=== PATIENT | female | born 1995 | race African-American/Black ===

== ENCOUNTER 2023-11-26 08:14 | Day surgery (SDC) | payer OTHER ==
[2023-11-25 10:49] VITALS: BMI 30.7
[2023-11-26 09:36] LABS: HEMOGLOBIN 13.2 G/dL (10.7-15.3); MCH 28.1 pg (25.7-33.7); MCHC 32.1 g/dl (32.0-36.0); MEAN CELL VOLUME 87.6 fl (80-96); MEAN PLT VOLUME 8.1 fl (7.5-11.1); PLATELET COUNT 408.1 10^3/uL (134-434); RBC 4.68 10^6/uL (3.60-5.2); RDW 13.2 % (11.6-15.6); WHITE BLOOD COUNT 5.7 10^3/uL (4.0-10.8)
[2023-11-26 09:38] LABS: ALBUMIN 4.3 g/dl (3.4-5.0); ALK PHOS 102 U/L (45-117); ANION GAP 12 mmol/L (4-13); BILIRUBIN,TOTAL 0.7 mg/dl (0.2-1); CALCIUM 9.1 mg/dl (8.5-10.1); CHLORIDE 106 mmol/L (98-107); CO2 24 mmol/L (21-32); CREATININE 0.7 mg/dl (0.6-1.3); GLUCOSE,RANDOM 90 mg/dl (74-106); POTASSIUM 3.6 mmol/L (3.5-5.1); SGOT/AST 15 U/L (15-37); SGPT/ALT 15 U/L (7-52); SODIUM 142 mmol/L (136-145); TOT PROT 7.1 g/dl (6.4-8.2)
[2023-11-26] MEDS ORDERED: KETAMINE HCL 100 MG/ML - 5ML VIAL ONE (11:39)
[2023-11-26] MEDS ORDERED: SUCCINYLCHOLINE CHLORIDE 200 MG/10 ML SYRINGE ONE (11:56)
[2023-11-26] MEDS ORDERED: MIDAZOLAM HCL 2 MG/2 ML SINGLE DOSE VIAL ONE (12:02)
[2023-11-26 12:24] VITALS: RESP 16
[2023-11-26 14:00] VITALS: PULSE 64; TEMP 98
[2023-11-26 14:52] VITALS: BP 98/68
== END 2023-11-26 14:50 | disposition home or self-care (01) ==
LOC: FECT 08:14
PROVIDERS: ATTEND Student in an Organized Health Care Education/Training Program
PROC: GZB4ZZZ Other Electroconvulsive Therapy (ICD-10-PCS; principal; 2023-11-26 11:58)
DX: F32.A Depression, unspecified (principal)
CPT/HCPCS: 36415; 80053; 81025; 85027; 90870; 93005; 94760

== ENCOUNTER 2023-11-28 09:01 | Day surgery (SDC) | payer OTHER ==
[2023-11-25 14:16] VITALS: BMI 30.7
[2023-11-28] MEDS ORDERED: PROPOFOL 20 ML ONE ×2 (10:16→11:43)
[2023-11-28] MEDS ORDERED: SUCCINYLCHOLINE CHLORIDE 200 MG/10 ML SYRINGE ONE ×2 (10:17→11:43)
[2023-11-28] MEDS ORDERED: MIDAZOLAM HCL 2 MG/2 ML SINGLE DOSE VIAL ONE (10:28)
[2023-11-28 11:35] VITALS: RESP 16; TEMP 97.3
[2023-11-28 13:29] VITALS: PULSE 88
[2023-11-28 13:30] VITALS: BP 122/75
== END 2023-11-28 14:30 | disposition home or self-care (01) ==
LOC: FECT 09:01
PROVIDERS: ATTEND Student in an Organized Health Care Education/Training Program
PROC: GZB4ZZZ Other Electroconvulsive Therapy (ICD-10-PCS; principal; 2023-11-28 10:24)
DX: F32.A Depression, unspecified (principal)
CPT/HCPCS: 90870; 94760

== ENCOUNTER 2023-12-03 09:09 | Day surgery (SDC) | payer OTHER ==
[2023-11-25 14:44] VITALS: BMI 30.7
[2023-12-03] MEDS ORDERED: KETAMINE HCL 100 MG/ML - 5ML VIAL ONE (13:58)
[2023-12-03 15:03] VITALS: RESP 19
[2023-12-03 15:19] VITALS: TEMP 97.7
[2023-12-03 15:27] VITALS: BP 112/64; PULSE 84
== END 2023-12-03 15:20 | disposition home or self-care (01) ==
LOC: FECT 09:09
PROVIDERS: ATTEND Student in an Organized Health Care Education/Training Program
PROC: GZB4ZZZ Other Electroconvulsive Therapy (ICD-10-PCS; principal; 2023-12-03 14:19)
DX: F32.A Depression, unspecified (principal)
CPT/HCPCS: 81025; 90870; 94760

== ENCOUNTER 2023-12-05 09:57 | Day surgery (SDC) | payer OTHER ==
[2023-12-03 15:46] VITALS: BMI 30.7
[2023-12-05 10:17] VITALS: RESP 16
[2023-12-05] MEDS ORDERED: KETAMINE HCL 100 MG/ML - 5ML VIAL ONE (12:43)
[2023-12-05 14:06] VITALS: BP 117/53; TEMP 98.1
[2023-12-05 14:08] VITALS: PULSE 74
== END 2023-12-05 14:22 | disposition home or self-care (01) ==
LOC: FECT 09:57
PROVIDERS: ATTEND Student in an Organized Health Care Education/Training Program
PROC: GZB4ZZZ Other Electroconvulsive Therapy (ICD-10-PCS; principal; 2023-12-05 13:03)
DX: F32.A Depression, unspecified (principal)
CPT/HCPCS: 90870; 94760

== ENCOUNTER 2023-12-06 08:05 | Day surgery (SDC) | payer OTHER ==
[2023-12-05 15:43] VITALS: BMI 30.7
[2023-12-06] MEDS ORDERED: KETAMINE HCL 100 MG/ML - 5ML VIAL ONE (08:57)
[2023-12-06 11:10] VITALS: TEMP 97.7
[2023-12-06 12:35] VITALS: BP 116/65; PULSE 82; RESP 16
== END 2023-12-06 11:30 | disposition home or self-care (01) ==
LOC: FECT 08:05
PROVIDERS: ATTEND Student in an Organized Health Care Education/Training Program
PROC: GZB4ZZZ Other Electroconvulsive Therapy (ICD-10-PCS; principal; 2023-12-06 09:15)
DX: F32.A Depression, unspecified (principal)
CPT/HCPCS: 90870; 94760

== ENCOUNTER 2023-12-10 08:15 | Day surgery (SDC) | payer OTHER ==
[2023-12-09 07:01] VITALS: BMI 30.7
[2023-12-10] MEDS ORDERED: KETAMINE HCL 100 MG/ML - 5ML VIAL ONE (09:52)
[2023-12-10 11:07] VITALS: RESP 18; TEMP 97.8
[2023-12-10 11:23] VITALS: BP 110/64; PULSE 64
== END 2023-12-10 11:25 | disposition home or self-care (01) ==
LOC: FECT 08:15
PROVIDERS: ATTEND Student in an Organized Health Care Education/Training Program
PROC: GZB4ZZZ Other Electroconvulsive Therapy (ICD-10-PCS; principal; 2023-12-10 10:09)
DX: F32.A Depression, unspecified (principal)
CPT/HCPCS: 81025; 90870; 94760

== ENCOUNTER 2023-12-12 09:35 | Day surgery (SDC) | payer OTHER ==
[2023-12-11 09:22] VITALS: BMI 30.7
[~2023-12-12 09:35] MED LIST: ACETAMINOPHEN 500 MG TABLET (FP) PO PRN; LACTATED RINGERS SOLUTION 1,000 ML IV SCH; PROMETHAZINE HCL 25 MG/1 ML VIAL IVPB PRN
[2023-12-12] MEDS ORDERED: KETAMINE HCL 100 MG/ML - 5ML VIAL ONE (10:36)
[2023-12-12 11:30] VITALS: RESP 18; TEMP 97.7
[2023-12-12 11:52] VITALS: BP 121/71; PULSE 81
== END 2023-12-12 11:55 | disposition home or self-care (01) ==
LOC: FECT 09:35
PROVIDERS: ATTEND Student in an Organized Health Care Education/Training Program
PROC: GZB4ZZZ Other Electroconvulsive Therapy (ICD-10-PCS; principal; 2023-12-12 10:46)
DX: F32.A Depression, unspecified (principal)
CPT/HCPCS: 90870; 94760

== ENCOUNTER 2023-12-13 10:54 | Day surgery (SDC) | payer OTHER ==
[2023-12-13 11:30] VITALS: BMI 30.7
[2023-12-13] MEDS ORDERED: KETAMINE HCL 100 MG/ML - 5ML VIAL ONE (12:31)
[2023-12-13 13:48] VITALS: RESP 18; TEMP 97.3
[2023-12-13 14:12] VITALS: BP 123/71; PULSE 69
== END 2023-12-13 14:13 | disposition home or self-care (01) ==
LOC: FECT 10:54
PROVIDERS: ATTEND Student in an Organized Health Care Education/Training Program
PROC: GZB4ZZZ Other Electroconvulsive Therapy (ICD-10-PCS; principal; 2023-12-13 12:50)
DX: F32.A Depression, unspecified (principal)
CPT/HCPCS: 90870; 94760

== ENCOUNTER 2023-12-17 12:24 | Day surgery (SDC) | payer OTHER ==
[2023-12-16 13:10] VITALS: BMI 30.7
[2023-12-17] MEDS ORDERED: KETAMINE HCL 100 MG/ML - 5ML VIAL ONE (14:25)
[2023-12-17 15:12] VITALS: TEMP 97
[2023-12-17 15:36] VITALS: BP 122/74; PULSE 92; RESP 18
== END 2023-12-17 15:47 | disposition home or self-care (01) ==
LOC: FECT 12:24
PROVIDERS: ATTEND Psychiatry & Neurology Psychiatry
PROC: GZB4ZZZ Other Electroconvulsive Therapy (ICD-10-PCS; principal; 2023-12-17 14:37)
DX: F32.A Depression, unspecified (principal)
CPT/HCPCS: 81025; 90870; 94760

== ENCOUNTER 2023-12-19 09:06 | Day surgery (SDC) | payer OTHER ==
[2023-12-17 17:49] VITALS: BMI 30.7
[2023-12-19] MEDS ORDERED: KETAMINE HCL 100 MG/ML - 5ML VIAL ONE (10:40)
[2023-12-19 12:01] VITALS: BP 127/73; PULSE 95; RESP 16; TEMP 98.3
== END 2023-12-19 12:10 | disposition home or self-care (01) ==
LOC: FECT 09:06
PROVIDERS: ATTEND Psychiatry & Neurology Psychiatry
PROC: GZB4ZZZ Other Electroconvulsive Therapy (ICD-10-PCS; principal; 2023-12-19 11:00)
DX: F32.A Depression, unspecified (principal)
CPT/HCPCS: 90870; 94760

== ENCOUNTER 2023-12-20 07:46 | Day surgery (SDC) | payer OTHER ==
[2023-12-17 17:52] VITALS: BMI 30.7
[2023-12-20 12:48] VITALS: TEMP 97
[2023-12-20 12:56] VITALS: BP 120/72; PULSE 86; RESP 17
== END 2023-12-20 10:45 | disposition home or self-care (01) ==
LOC: FECT 07:46
PROVIDERS: ATTEND Student in an Organized Health Care Education/Training Program
PROC: GZB4ZZZ Other Electroconvulsive Therapy (ICD-10-PCS; principal; 2023-12-20 09:09)
DX: F33.2 Major depressive disorder, recurrent severe without psychotic features (principal)
CPT/HCPCS: 90870; 94760

== ENCOUNTER 2023-12-24 07:36 | Day surgery (SDC) | payer OTHER ==
[2023-12-20 14:29] VITALS: BMI 30.7
[2023-12-24] MEDS ORDERED: KETAMINE HCL 100 MG/ML - 5ML VIAL ONE (08:57)
[2023-12-24] MEDS ORDERED: SUCCINYLCHOLINE CHLORIDE 200 MG/10 ML SYRINGE ONE (09:07)
[2023-12-24 09:41] VITALS: TEMP 97.3
[2023-12-24 15:11] VITALS: BP 125/75; PULSE 89
[2023-12-24 15:13] VITALS: RESP 18
== END 2023-12-24 10:40 | disposition home or self-care (01) ==
LOC: FECT 07:36
PROVIDERS: ATTEND Student in an Organized Health Care Education/Training Program
PROC: GZB4ZZZ Other Electroconvulsive Therapy (ICD-10-PCS; principal; 2023-12-24 09:16)
DX: F32.A Depression, unspecified (principal)
CPT/HCPCS: 81025; 90870; 94760

== ENCOUNTER 2023-12-26 09:24 | Day surgery (SDC) | payer OTHER ==
[2023-12-24 15:33] VITALS: BMI 30.7
[2023-12-26] MEDS ORDERED: KETAMINE HCL 100 MG/ML - 5ML VIAL ONE (10:30)
[2023-12-26] MEDS ORDERED: ONDANSETRON 4 MG/2 ML VIAL ONE (10:33)
[2023-12-26] MEDS ORDERED: DEXAMETHASONE SOD PHOSPHATE 4 MG/1 ML VIAL ONE (10:33)
[2023-12-26] MEDS ORDERED: KETOROLAC TROMETHAMINE 30 MG/1 ML VIAL ONE (10:33)
[2023-12-26] MEDS ORDERED: SUCCINYLCHOLINE CHLORIDE 200 MG/10 ML SYRINGE ONE (10:34)
[2023-12-26 11:44] VITALS: RESP 18; TEMP 97.5
[2023-12-26 12:00] VITALS: BP 106/69; PULSE 86
== END 2023-12-26 12:00 | disposition home or self-care (01) ==
LOC: FECT 09:24
PROVIDERS: ATTEND Psychiatry & Neurology Psychiatry
PROC: GZB4ZZZ Other Electroconvulsive Therapy (ICD-10-PCS; principal; 2023-12-26 10:39)
DX: F32.A Depression, unspecified (principal)
CPT/HCPCS: 90870; 94760

== ENCOUNTER 2023-12-27 07:09 | Day surgery (SDC) | payer OTHER ==
[2023-12-26 13:41] VITALS: BMI 30.7
[2023-12-27] MEDS ORDERED: LACTATED RINGERS SOLUTION 1,000 ML IV SCH (08:15)
[2023-12-27] MEDS ORDERED: KETAMINE HCL 100 MG/ML - 5ML VIAL ONE (08:52)
[2023-12-27 10:42] VITALS: RESP 16; TEMP 98
[2023-12-27 11:34] VITALS: BP 123/72; PULSE 84
== END 2023-12-27 10:35 | disposition home or self-care (01) ==
LOC: FECT 07:09
PROVIDERS: ATTEND Student in an Organized Health Care Education/Training Program
PROC: GZB4ZZZ Other Electroconvulsive Therapy (ICD-10-PCS; principal; 2023-12-27 09:09)
DX: F32.A Depression, unspecified (principal)
CPT/HCPCS: 90870; 94760

== ENCOUNTER 2023-12-31 07:22 | Day surgery (SDC) | payer OTHER ==
[2023-12-26 14:38] VITALS: BMI 30.7
[2023-12-31] MEDS ORDERED: KETAMINE HCL 100 MG/ML - 5ML VIAL ONE (08:42)
[2023-12-31 09:54] VITALS: PULSE 96; RESP 18; TEMP 96.7
[2023-12-31 10:09] VITALS: BP 110/84
== END 2023-12-31 11:19 | disposition home or self-care (01) ==
LOC: FECT 07:22
PROVIDERS: ATTEND Student in an Organized Health Care Education/Training Program
PROC: GZB4ZZZ Other Electroconvulsive Therapy (ICD-10-PCS; principal; 2023-12-31 08:55)
DX: F32.A Depression, unspecified (principal)
CPT/HCPCS: 81025; 90870; 94760

== ENCOUNTER 2024-01-03 07:55 | Day surgery (SDC) | payer OTHER ==
[2023-12-31 12:39] VITALS: BMI 30.7
[2024-01-03] MEDS ORDERED: ONDANSETRON 4 MG/2 ML VIAL IVPUSH PRN (08:37)
[2024-01-03] MEDS ORDERED: LACTATED RINGERS SOLUTION 1,000 ML IV SCH (08:45)
[2024-01-03] MEDS ORDERED: KETAMINE HCL 200 MG/20 ML VIAL ONE (09:36)
[2024-01-03] MEDS ORDERED: KETOROLAC TROMETHAMINE 30 MG/1 ML VIAL ONE (09:36)
[2024-01-03] MEDS ORDERED: ONDANSETRON 4 MG/2 ML VIAL ONE (09:36)
[2024-01-03] MEDS ORDERED: PROPOFOL 20 ML ONE (09:36)
[2024-01-03] MEDS ORDERED: SUCCINYLCHOLINE CHLORIDE 200 MG/10 ML SYRINGE ONE (09:37)
[2024-01-03 10:45] VITALS: RESP 16; TEMP 97.7
[2024-01-03 10:50] VITALS: BP 130/65; PULSE 94
== END 2024-01-03 10:55 | disposition home or self-care (01) ==
LOC: FECT 07:55
PROVIDERS: ATTEND Student in an Organized Health Care Education/Training Program
PROC: GZB4ZZZ Other Electroconvulsive Therapy (ICD-10-PCS; principal; 2024-01-03 09:44)
DX: F32.A Depression, unspecified (principal)
CPT/HCPCS: 90870; 94760

== ENCOUNTER 2024-01-07 10:10 | Day surgery (SDC) | payer OTHER ==
[2024-01-03 12:58] VITALS: BMI 30.7
[2024-01-07] MEDS ORDERED: KETAMINE HCL 100 MG/ML - 5ML VIAL ONE (11:45)
[2024-01-07 12:48] VITALS: PULSE 96; RESP 16; TEMP 97.2
[2024-01-07 13:07] VITALS: BP 126/65
== END 2024-01-07 13:20 | disposition home or self-care (01) ==
LOC: FECT 10:10
PROVIDERS: ATTEND Student in an Organized Health Care Education/Training Program
PROC: GZB4ZZZ Other Electroconvulsive Therapy (ICD-10-PCS; principal; 2024-01-07 11:54)
DX: F33.2 Major depressive disorder, recurrent severe without psychotic features (principal)
CPT/HCPCS: 81025; 90870; 94760

== ENCOUNTER 2024-01-10 10:20 | Day surgery (SDC) | payer OTHER ==
[2024-01-08 07:57] VITALS: BMI 30.7
[2024-01-10] MEDS ORDERED: KETAMINE HCL 100 MG/ML - 5ML VIAL ONE (13:22)
[2024-01-10 14:25] VITALS: RESP 18; TEMP 97.8
[2024-01-10 15:17] VITALS: BP 118/64; PULSE 89
== END 2024-01-10 15:00 | disposition home or self-care (01) ==
LOC: FECT 10:20
PROVIDERS: ATTEND Student in an Organized Health Care Education/Training Program
PROC: GZB4ZZZ Other Electroconvulsive Therapy (ICD-10-PCS; principal; 2024-01-10 13:41)
DX: F32.A Depression, unspecified (principal)
CPT/HCPCS: 90870; 94760

== ENCOUNTER 2024-01-14 12:31 | Day surgery (SDC) | payer OTHER ==
[2024-01-10 15:18] VITALS: BMI 30.7
[2024-01-14 13:03] VITALS: TEMP 97.7
[2024-01-14] MEDS ORDERED: KETAMINE HCL 100 MG/ML - 5ML VIAL ONE (13:27)
[2024-01-14 15:16] VITALS: RESP 18
[2024-01-14 15:47] VITALS: BP 112/78; PULSE 91
== END 2024-01-14 15:15 | disposition home or self-care (01) ==
LOC: FECT 12:31
PROVIDERS: ATTEND Student in an Organized Health Care Education/Training Program
PROC: GZB4ZZZ Other Electroconvulsive Therapy (ICD-10-PCS; principal; 2024-01-14 13:53)
DX: F32.A Depression, unspecified (principal)
CPT/HCPCS: 81025; 90870; 94760

== ENCOUNTER 2024-01-16 10:04 | Day surgery (SDC) | payer OTHER ==
[2024-01-15 13:12] VITALS: BMI 30.7
[2024-01-16] MEDS ORDERED: KETAMINE HCL 100 MG/ML - 5ML VIAL ONE (11:40)
[2024-01-16 12:47] VITALS: RESP 18; TEMP 97.9
[2024-01-16 12:56] VITALS: BP 129/78; PULSE 88
== END 2024-01-16 13:00 | disposition home or self-care (01) ==
LOC: FECT 10:04
PROVIDERS: ATTEND Psychiatry & Neurology Psychiatry
PROC: GZB4ZZZ Other Electroconvulsive Therapy (ICD-10-PCS; principal; 2024-01-16 11:49)
DX: F32.A Depression, unspecified (principal)
CPT/HCPCS: 90870; 94760

== ENCOUNTER 2024-01-21 10:03 | Day surgery (SDC) | payer OTHER ==
[2024-01-16 14:25] VITALS: BMI 30.7
[2024-01-21] MEDS ORDERED: KETAMINE HCL 100 MG/ML - 5ML VIAL ONE (11:29)
[2024-01-21 12:37] VITALS: RESP 20; TEMP 98.4
[2024-01-21 12:47] VITALS: BP 124/80; PULSE 94
== END 2024-01-21 13:00 | disposition home or self-care (01) ==
LOC: FECT 10:03
PROVIDERS: ATTEND Student in an Organized Health Care Education/Training Program
PROC: GZB4ZZZ Other Electroconvulsive Therapy (ICD-10-PCS; principal; 2024-01-21 11:55)
DX: F32.A Depression, unspecified (principal)
CPT/HCPCS: 81025; 90870; 94760

== ENCOUNTER 2024-01-28 09:24 | Day surgery (SDC) | payer OTHER ==
[2024-01-22 13:10] VITALS: BMI 30.7
[2024-01-28] MEDS ORDERED: KETAMINE HCL 100 MG/ML - 5ML VIAL ONE (10:13)
[2024-01-28 13:08] VITALS: BP 122/71; PULSE 88; RESP 16; TEMP 97.8
== END 2024-01-28 12:15 | disposition home or self-care (01) ==
LOC: FECT 09:24
PROVIDERS: ATTEND Student in an Organized Health Care Education/Training Program
PROC: GZB4ZZZ Other Electroconvulsive Therapy (ICD-10-PCS; principal; 2024-01-28 10:40)
DX: F32.A Depression, unspecified (principal)
CPT/HCPCS: 81025; 90870; 94760

== ENCOUNTER 2024-01-31 11:49 | Day surgery (SDC) | payer OTHER ==
[2024-01-28 13:52] VITALS: BMI 30.7
[2024-01-31] MEDS ORDERED: KETAMINE HCL 100 MG/ML - 5ML VIAL ONE (13:21)
[2024-01-31 14:58] VITALS: PULSE 97; RESP 14; TEMP 98.5
[2024-01-31 15:01] VITALS: BP 119/71
== END 2024-01-31 15:01 | disposition home or self-care (01) ==
LOC: FECT 11:49
PROVIDERS: ATTEND Student in an Organized Health Care Education/Training Program
PROC: GZB4ZZZ Other Electroconvulsive Therapy (ICD-10-PCS; principal; 2024-01-31 13:48)
DX: F32.A Depression, unspecified (principal)
CPT/HCPCS: 90870; 94760

== ENCOUNTER 2024-02-04 10:12 | Day surgery (SDC) | payer OTHER ==
[2024-02-03 07:59] VITALS: BMI 30.7
[2024-02-04] MEDS ORDERED: KETAMINE HCL 100 MG/ML - 5ML VIAL ONE (11:36)
[2024-02-04 12:40] VITALS: BP 119/83; PULSE 93; RESP 19; TEMP 97.5
== END 2024-02-04 12:55 | disposition home or self-care (01) ==
LOC: FECT 10:12
PROVIDERS: ATTEND Student in an Organized Health Care Education/Training Program
PROC: GZB4ZZZ Other Electroconvulsive Therapy (ICD-10-PCS; principal; 2024-02-04 11:49)
DX: F32.A Depression, unspecified (principal)
CPT/HCPCS: 81025; 90870; 94760

== ENCOUNTER 2024-02-07 08:48 | Day surgery (SDC) | payer OTHER ==
[2024-02-07 09:14] VITALS: BMI 30.7
[2024-02-07] MEDS ORDERED: KETAMINE HCL 100 MG/ML - 5ML VIAL ONE (11:02)
[2024-02-07 12:47] VITALS: TEMP 97.7
[2024-02-07 12:48] VITALS: BP 118/52; PULSE 96; RESP 18
== END 2024-02-07 12:35 | disposition home or self-care (01) ==
LOC: FECT 08:48
PROVIDERS: ATTEND Student in an Organized Health Care Education/Training Program
PROC: GZB4ZZZ Other Electroconvulsive Therapy (ICD-10-PCS; principal; 2024-02-07 11:14)
DX: F32.A Depression, unspecified (principal)
CPT/HCPCS: 90870; 94760

== ENCOUNTER 2024-02-11 10:10 | Day surgery (SDC) | payer OTHER ==
[2024-02-07 14:00] VITALS: BMI 30.7
[2024-02-11 10:25] VITALS: RESP 18; TEMP 97.5
[2024-02-11] MEDS ORDERED: KETAMINE HCL 100 MG/ML - 5ML VIAL ONE (12:03)
[2024-02-11 13:59] VITALS: BP 122/64; PULSE 95
== END 2024-02-11 13:50 | disposition home or self-care (01) ==
LOC: FECT 10:10
PROVIDERS: ATTEND Student in an Organized Health Care Education/Training Program
PROC: GZB4ZZZ Other Electroconvulsive Therapy (ICD-10-PCS; principal; 2024-02-11 12:27)
DX: F32.A Depression, unspecified (principal)
CPT/HCPCS: 81025; 90870; 94760

== ENCOUNTER 2024-02-14 08:17 | Day surgery (SDC) | payer OTHER ==
[2024-02-12 16:48] VITALS: BMI 30.7
[~2024-02-14 08:17] MED LIST changes: -ACETAMINOPHEN 500 MG TABLET (FP) PO PRN; +ONDANSETRON 4 MG/2 ML VIAL IVPUSH PRN; -PROMETHAZINE HCL 25 MG/1 ML VIAL IVPB PRN
[2024-02-14] MEDS ORDERED: KETAMINE HCL 100 MG/ML - 5ML VIAL ONE (09:38)
[2024-02-14 10:31] VITALS: PULSE 85; RESP 18; TEMP 97.5
[2024-02-14 13:29] VITALS: BP 130/75
== END 2024-02-14 12:15 | disposition home or self-care (01) ==
LOC: FECT 08:17
PROVIDERS: ATTEND Student in an Organized Health Care Education/Training Program
PROC: GZB4ZZZ Other Electroconvulsive Therapy (ICD-10-PCS; principal; 2024-02-14 09:46)
DX: F32.A Depression, unspecified (principal)
CPT/HCPCS: 90870; 94760

== ENCOUNTER 2024-02-18 10:09 | Day surgery (SDC) | payer OTHER ==
[2024-02-14 12:03] VITALS: BMI 30.7
[2024-02-18] MEDS ORDERED: KETAMINE HCL 100 MG/ML - 5ML VIAL ONE (11:08)
[2024-02-18 12:07] VITALS: TEMP 97.3
[2024-02-18 12:54] VITALS: RESP 18
[2024-02-18 13:19] VITALS: PULSE 97
[2024-02-18 13:24] VITALS: BP 131/81
== END 2024-02-18 13:05 | disposition home or self-care (01) ==
LOC: FECT 10:09
PROVIDERS: ATTEND Student in an Organized Health Care Education/Training Program
PROC: GZB4ZZZ Other Electroconvulsive Therapy (ICD-10-PCS; principal; 2024-02-18 11:32)
DX: F32.A Depression, unspecified (principal)
CPT/HCPCS: 81025; 90870; 94760

== ENCOUNTER 2024-02-21 06:44 | Day surgery (SDC) | payer OTHER ==
[2024-02-18 15:40] VITALS: BMI 30.7
[2024-02-21] MEDS ORDERED: KETAMINE HCL 100 MG/ML - 5ML VIAL ONE (08:22)
[2024-02-21 09:43] VITALS: RESP 18; TEMP 97.2
[2024-02-21 10:03] VITALS: BP 127/76; PULSE 90
== END 2024-02-21 10:00 | disposition home or self-care (01) ==
LOC: FECT 06:44
PROVIDERS: ATTEND Student in an Organized Health Care Education/Training Program
PROC: GZB4ZZZ Other Electroconvulsive Therapy (ICD-10-PCS; principal; 2024-02-21 08:33)
DX: F32.A Depression, unspecified (principal)
CPT/HCPCS: 90870; 94760

== ENCOUNTER 2024-02-25 10:45 | Day surgery (SDC) | payer OTHER ==
[2024-02-24 06:51] VITALS: BMI 30.7
[2024-02-25] MEDS ORDERED: KETAMINE HCL 100 MG/ML - 5ML VIAL ONE (12:18)
[2024-02-25 12:43] VITALS: RESP 16
[2024-02-25 13:40] VITALS: TEMP 97.5
[2024-02-25 13:58] VITALS: BP 129/54; PULSE 96
== END 2024-02-25 14:00 | disposition home or self-care (01) ==
LOC: FECT 10:45
PROVIDERS: ATTEND Student in an Organized Health Care Education/Training Program
PROC: GZB4ZZZ Other Electroconvulsive Therapy (ICD-10-PCS; principal; 2024-02-25 12:29)
DX: F32.A Depression, unspecified (principal)
CPT/HCPCS: 81025; 90870; 94760

== ENCOUNTER 2024-02-28 08:43 | Day surgery (SDC) | payer OTHER ==
[2024-02-26 13:23] VITALS: BMI 30.7
[2024-02-28] MEDS ORDERED: KETAMINE HCL 100 MG/ML - 5ML VIAL ONE (11:10)
[2024-02-28 12:16] VITALS: TEMP 97.7
[2024-02-28 14:48] VITALS: BP 138/82; PULSE 99; RESP 18
== END 2024-02-28 12:45 | disposition home or self-care (01) ==
LOC: FECT 08:43
PROVIDERS: ATTEND Student in an Organized Health Care Education/Training Program
PROC: GZB4ZZZ Other Electroconvulsive Therapy (ICD-10-PCS; principal; 2024-02-28 11:26)
DX: F32.A Depression, unspecified (principal)
CPT/HCPCS: 90870; 94760

== ENCOUNTER → 2024-03-03 | Day surgery (SDC) | payer OTHER ==
[2024-02-28 15:09] VITALS: BMI 30.7
[~2024-03-03] MED LIST changes: +DEXAMETHASONE SOD PHOSPHATE 4 MG/1 ML VIAL ONE; +KETAMINE HCL 100 MG/ML - 5ML VIAL ONE; +KETOROLAC TROMETHAMINE 30 MG/1 ML VIAL ONE; -LACTATED RINGERS SOLUTION 1,000 ML IV SCH; -ONDANSETRON 4 MG/2 ML VIAL IVPUSH PRN; +ONDANSETRON 4 MG/2 ML VIAL ONE; +PROPOFOL 20 ML ONE; +SUCCINYLCHOLINE CHLORIDE 200 MG/10 ML SYRINGE ONE
[2024-03-03 13:09] VITALS: RESP 16
[2024-03-03 13:24] VITALS: PULSE 86; TEMP 97.6
[2024-03-03 13:38] VITALS: BP 120/68
== END | disposition home or self-care (01) ==
LOC: FECT 10:20
PROVIDERS: ATTEND Student in an Organized Health Care Education/Training Program
PROC: GZB4ZZZ Other Electroconvulsive Therapy (ICD-10-PCS; principal; 2024-03-03 12:29)
DX: F32.A Depression, unspecified (principal)
CPT/HCPCS: 81025; 90870; 94760

== ENCOUNTER 2024-03-06 07:30 | Day surgery (SDC) | payer OTHER ==
[2024-03-03 14:17] VITALS: BMI 30.7
[2024-03-06 10:45] VITALS: RESP 18; TEMP 97.7
[2024-03-06 11:30] VITALS: BP 121/71; PULSE 84
== END 2024-03-06 11:35 | disposition home or self-care (01) ==
LOC: FECT 07:30
PROVIDERS: ATTEND Student in an Organized Health Care Education/Training Program
PROC: GZB4ZZZ Other Electroconvulsive Therapy (ICD-10-PCS; principal; 2024-03-06 09:45)
DX: F32.A Depression, unspecified (principal)
CPT/HCPCS: 90870; 94760

== ENCOUNTER 2024-03-10 11:07 | Day surgery (SDC) | payer OTHER ==
[2024-03-06 15:11] VITALS: BMI 30.7
[2024-03-10 16:33] VITALS: BP 118/70; PULSE 85; RESP 16; TEMP 98.4
== END 2024-03-10 15:15 | disposition home or self-care (01) ==
LOC: FECT 11:07
PROVIDERS: ATTEND Student in an Organized Health Care Education/Training Program
PROC: GZB4ZZZ Other Electroconvulsive Therapy (ICD-10-PCS; principal; 2024-03-10 13:41)
DX: F32.A Depression, unspecified (principal)
CPT/HCPCS: 81025; 90870; 94760

== ENCOUNTER 2024-03-13 08:13 | Day surgery (SDC) | payer OTHER ==
[2024-03-13 08:50] VITALS: BMI 30.7
[2024-03-13] MEDS ORDERED: KETAMINE HCL 100 MG/ML - 5ML VIAL ONE (09:49)
[2024-03-13 11:03] VITALS: PULSE 89; RESP 18; TEMP 97.2
[2024-03-13 11:44] VITALS: BP 110/64
== END 2024-03-13 11:38 | disposition home or self-care (01) ==
LOC: FECT 08:13
PROVIDERS: ATTEND Student in an Organized Health Care Education/Training Program
PROC: GZB4ZZZ Other Electroconvulsive Therapy (ICD-10-PCS; principal; 2024-03-13 09:30)
DX: F32.A Depression, unspecified (principal)
CPT/HCPCS: 90870; 94760

== ENCOUNTER 2024-03-17 11:01 | Day surgery (SDC) | payer OTHER ==
[2024-03-13 16:15] VITALS: BMI 30.7
[2024-03-17 14:33] VITALS: TEMP 97.7
[2024-03-17 14:43] VITALS: BP 124/74; PULSE 90; RESP 19
== END 2024-03-17 14:45 | disposition home or self-care (01) ==
LOC: FECT 11:01
PROVIDERS: ATTEND Student in an Organized Health Care Education/Training Program
PROC: GZB4ZZZ Other Electroconvulsive Therapy (ICD-10-PCS; principal; 2024-03-17 13:36)
DX: F32.A Depression, unspecified (principal)
CPT/HCPCS: 81025; 90870; 94760

== ENCOUNTER 2024-03-20 08:14 | Day surgery (SDC) | payer OTHER ==
[2024-03-18 13:50] VITALS: BMI 30.7
[2024-03-20] MEDS ORDERED: KETAMINE HCL 100 MG/ML - 5ML VIAL ONE (09:05)
[2024-03-20 09:44] VITALS: RESP 16
[2024-03-20 10:36] VITALS: TEMP 97.7
[2024-03-20 10:44] VITALS: BP 135/56; PULSE 94
== END 2024-03-20 10:48 | disposition home or self-care (01) ==
LOC: FECT 08:14
PROVIDERS: ATTEND Student in an Organized Health Care Education/Training Program
PROC: GZB4ZZZ Other Electroconvulsive Therapy (ICD-10-PCS; principal; 2024-03-20 09:19)
DX: F32.A Depression, unspecified (principal)
CPT/HCPCS: 90870; 94760

== ENCOUNTER 2024-03-26 09:45 | Day surgery (SDC) | payer OTHER ==
[2024-03-23 13:45] VITALS: BMI 30.7
[2024-03-26 12:54] VITALS: BP 128/77; PULSE 88; RESP 18; TEMP 98.5
== END 2024-03-26 12:45 | disposition home or self-care (01) ==
LOC: FECT 09:45
PROVIDERS: ATTEND Student in an Organized Health Care Education/Training Program
PROC: GZB4ZZZ Other Electroconvulsive Therapy (ICD-10-PCS; principal; 2024-03-26 11:31)
DX: F32.A Depression, unspecified (principal)
CPT/HCPCS: 81025; 90870; 94760

== ENCOUNTER 2024-03-27 09:51 | Day surgery (SDC) | payer OTHER ==
[2024-03-26 13:49] VITALS: BMI 30.7
[2024-03-27] MEDS ORDERED: KETAMINE HCL 100 MG/ML - 5ML VIAL ONE (11:27)
[2024-03-27 12:09] VITALS: RESP 18
[2024-03-27 12:37] VITALS: TEMP 98
[2024-03-27 13:11] VITALS: BP 121/65; PULSE 86
== END 2024-03-27 13:13 | disposition home or self-care (01) ==
LOC: FECT 09:51
PROVIDERS: ATTEND Student in an Organized Health Care Education/Training Program
PROC: GZB4ZZZ Other Electroconvulsive Therapy (ICD-10-PCS; principal; 2024-03-27 11:39)
DX: F32.A Depression, unspecified (principal)
CPT/HCPCS: 90870; 94760

== ENCOUNTER 2024-04-02 10:56 | Day surgery (SDC) | payer OTHER ==
[2024-03-27 17:27] VITALS: BMI 30.7
[2024-04-02 14:42] VITALS: TEMP 97.2
[2024-04-02 14:43] VITALS: BP 119/72; PULSE 81; RESP 18
== END 2024-04-02 14:46 | disposition home or self-care (01) ==
LOC: FECT 10:56
PROVIDERS: ATTEND Student in an Organized Health Care Education/Training Program
PROC: GZB4ZZZ Other Electroconvulsive Therapy (ICD-10-PCS; principal; 2024-04-02 13:27)
DX: F33.2 Major depressive disorder, recurrent severe without psychotic features (principal)
CPT/HCPCS: 81025; 90870; 94760

== ENCOUNTER → 2024-04-03 | Day surgery (SDC) | payer OTHER ==
[2024-04-03 08:36] VITALS: BMI 30.7
[2024-04-03 11:11] VITALS: TEMP 97.1
[2024-04-03 11:24] VITALS: RESP 16
[2024-04-03 11:44] VITALS: BP 112/62; PULSE 72
== END | disposition home or self-care (01) ==
LOC: FECT 09:33
PROVIDERS: ATTEND Psychiatry & Neurology Psychiatry
PROC: GZB4ZZZ Other Electroconvulsive Therapy (ICD-10-PCS; principal; 2024-04-03 10:49)
DX: F33.2 Major depressive disorder, recurrent severe without psychotic features (principal)
CPT/HCPCS: 90870; 94760

== ENCOUNTER 2024-04-10 06:55 | Day surgery (SDC) | payer OTHER ==
[2024-04-06 14:54] VITALS: BMI 30.7
[2024-04-10 09:42] VITALS: RESP 20; TEMP 97.8
[2024-04-10 10:09] VITALS: BP 116/76; PULSE 88
== END 2024-04-10 11:15 | disposition home or self-care (01) ==
LOC: FECT 06:55
PROVIDERS: ATTEND Student in an Organized Health Care Education/Training Program
PROC: GZB4ZZZ Other Electroconvulsive Therapy (ICD-10-PCS; principal; 2024-04-10 08:46)
DX: F32.A Depression, unspecified (principal)
CPT/HCPCS: 81025; 90870; 94760

== ENCOUNTER 2024-05-07 11:01 | Day surgery (SDC) | payer OTHER ==
[2024-05-06 11:36] VITALS: BMI 30.7
[2024-05-07] MEDS ORDERED: KETAMINE HCL 100 MG/ML - 5ML VIAL ONE (11:44)
[2024-05-07] MEDS ORDERED: ONDANSETRON 4 MG/2 ML VIAL ONE (11:49)
[2024-05-07] MEDS ORDERED: KETOROLAC TROMETHAMINE 30 MG/1 ML VIAL ONE (11:49)
[2024-05-07] MEDS ORDERED: DEXAMETHASONE SOD PHOSPHATE 4 MG/1 ML VIAL ONE (11:49)
[2024-05-07] MEDS ORDERED: SUCCINYLCHOLINE CHLORIDE 200 MG/10 ML SYRINGE ONE (11:51)
[2024-05-07 12:46] VITALS: BP 144/87; RESP 18; TEMP 98.2
[2024-05-07 13:10] VITALS: PULSE 88
== END 2024-05-07 13:15 | disposition home or self-care (01) ==
LOC: FECT 11:01
PROVIDERS: ATTEND Psychiatry & Neurology Psychiatry
PROC: GZB4ZZZ Other Electroconvulsive Therapy (ICD-10-PCS; principal; 2024-05-07 11:56)
DX: F33.2 Major depressive disorder, recurrent severe without psychotic features (principal)
CPT/HCPCS: 90870; 94760

== ENCOUNTER 2024-05-12 09:12 | Day surgery (SDC) | payer OTHER ==
[2024-05-12 09:34] VITALS: BMI 30.7
[2024-05-12] MEDS ORDERED: KETAMINE HCL 100 MG/ML - 5ML VIAL ONE (11:15)
[2024-05-12 12:11] VITALS: RESP 18
[2024-05-12 12:25] VITALS: TEMP 98.9
[2024-05-12 12:48] VITALS: BP 121/74; PULSE 81
== END 2024-05-12 12:50 | disposition home or self-care (01) ==
LOC: FECT 09:12
PROVIDERS: ATTEND Student in an Organized Health Care Education/Training Program
PROC: GZB4ZZZ Other Electroconvulsive Therapy (ICD-10-PCS; principal; 2024-05-12 11:29)
DX: F33.2 Major depressive disorder, recurrent severe without psychotic features (principal)
CPT/HCPCS: 81025; 90870; 94760

== ENCOUNTER → 2024-05-15 | Day surgery (SDC) | payer OTHER ==
[2024-05-12 11:55] VITALS: BMI 30.7
[~2024-05-15] MED LIST changes: -DEXAMETHASONE SOD PHOSPHATE 4 MG/1 ML VIAL ONE; -KETOROLAC TROMETHAMINE 30 MG/1 ML VIAL ONE; -ONDANSETRON 4 MG/2 ML VIAL ONE
[2024-05-15 09:04] VITALS: TEMP 98.8
[2024-05-15 09:23] VITALS: RESP 18
[2024-05-15 10:15] VITALS: BP 121/70; PULSE 83
== END | disposition home or self-care (01) ==
LOC: FECT 07:48
PROVIDERS: ATTEND Student in an Organized Health Care Education/Training Program
PROC: GZB4ZZZ Other Electroconvulsive Therapy (ICD-10-PCS; principal; 2024-05-15 08:50)
DX: F33.2 Major depressive disorder, recurrent severe without psychotic features (principal)
CPT/HCPCS: 90870; 94760

== ENCOUNTER 2024-05-19 09:02 | Day surgery (SDC) | payer OTHER ==
[2024-05-15 11:56] VITALS: BMI 30.7
[2024-05-19 10:10] VITALS: RESP 16
[2024-05-19 10:37] VITALS: TEMP 98.2
[2024-05-19 10:56] VITALS: BP 137/80; PULSE 90
== END 2024-05-19 12:15 | disposition home or self-care (01) ==
LOC: FECT 09:02
PROVIDERS: ATTEND Student in an Organized Health Care Education/Training Program
PROC: GZB4ZZZ Other Electroconvulsive Therapy (ICD-10-PCS; principal; 2024-05-19 09:44)
DX: F33.2 Major depressive disorder, recurrent severe without psychotic features (principal)
CPT/HCPCS: 81025; 90870; 94760

== ENCOUNTER 2024-05-22 08:46 | Day surgery (SDC) | payer OTHER ==
[2024-05-21 13:11] VITALS: BMI 30.7
[2024-05-22 11:13] VITALS: RESP 18; TEMP 98
[2024-05-22 11:38] LABS: HEMATOCRIT 40.9 % (32.4-45.2); HEMOGLOBIN 13.4 G/dL (10.7-15.3); MCH 28.9 pg (25.7-33.7); MCHC 32.6 g/dl (32.0-36.0); MEAN CELL VOLUME 88.6 fl (80-96); MEAN PLT VOLUME 8.3 fl (7.5-11.1); PLATELET COUNT 404.7 10^3/uL (134-434); RBC 4.62 10^6/uL (3.60-5.2); RDW 12.6 % (11.6-15.6); WHITE BLOOD COUNT 6.7 10^3/uL (4.0-10.8)
[2024-05-22 11:49] VITALS: BP 121/78; PULSE 74
[2024-05-22 12:47] LABS: ALBUMIN 4.2 g/dl (3.4-5.0); BILIRUBIN,TOTAL 0.6 mg/dl (0.2-1); CALCIUM 9.3 mg/dl (8.5-10.1); CREATININE 0.6 mg/dl (0.6-1.3); TOT PROT 6.7 g/dl (6.4-8.2)
[2024-05-22 13:16] LABS: PLATELET ESTIMATE ADEQUATE
== END 2024-05-22 11:45 | disposition home or self-care (01) ==
LOC: FECT 08:46
PROVIDERS: ATTEND Student in an Organized Health Care Education/Training Program
PROC: GZB4ZZZ Other Electroconvulsive Therapy (ICD-10-PCS; principal; 2024-05-22 10:19)
DX: F33.2 Major depressive disorder, recurrent severe without psychotic features (principal)
CPT/HCPCS: 36415; 80053; 85027; 90870; 93005; 94760

== ENCOUNTER 2024-05-26 10:58 | Day surgery (SDC) | payer OTHER ==
[2024-05-26 11:10] VITALS: BMI 30.7
[2024-05-26] MEDS ORDERED: KETAMINE HCL 100 MG/ML - 5ML VIAL ONE (12:40)
[2024-05-26 13:55] VITALS: TEMP 98.5
[2024-05-26 14:18] VITALS: BP 119/70; PULSE 88; RESP 19
== END 2024-05-26 14:19 | disposition home or self-care (01) ==
LOC: FECT 10:58
PROVIDERS: ATTEND Student in an Organized Health Care Education/Training Program
PROC: GZB4ZZZ Other Electroconvulsive Therapy (ICD-10-PCS; principal; 2024-05-26 12:46)
DX: F32.A Depression, unspecified (principal)
CPT/HCPCS: 81025; 90870; 94760

== ENCOUNTER 2024-05-29 10:43 | Day surgery (SDC) | payer OTHER ==
[2024-05-26 18:17] VITALS: BMI 30.7
[2024-05-29 10:57] VITALS: TEMP 97.3
[2024-05-29 12:35] VITALS: PULSE 90; RESP 16
[2024-05-29 14:57] VITALS: BP 116/72
== END 2024-05-29 14:40 | disposition home or self-care (01) ==
LOC: FECT 10:43
PROVIDERS: ATTEND Student in an Organized Health Care Education/Training Program
PROC: GZB4ZZZ Other Electroconvulsive Therapy (ICD-10-PCS; principal; 2024-05-29 11:30)
DX: F33.2 Major depressive disorder, recurrent severe without psychotic features (principal)
CPT/HCPCS: 90870; 94760

== ENCOUNTER 2024-06-16 13:16 | Day surgery (SDC) | payer OTHER ==
[2024-06-15 08:48] VITALS: BMI 30.7
[2024-06-16] MEDS ORDERED: KETAMINE HCL 100 MG/ML - 5ML VIAL ONE (14:03)
[2024-06-16 15:22] VITALS: TEMP 98.6
[2024-06-16 15:33] VITALS: RESP 18
[2024-06-16 15:50] VITALS: BP 139/77; PULSE 86
== END 2024-06-16 15:45 | disposition home or self-care (01) ==
LOC: FECT 13:16
PROVIDERS: ATTEND Student in an Organized Health Care Education/Training Program
PROC: GZB4ZZZ Other Electroconvulsive Therapy (ICD-10-PCS; principal; 2024-06-16 14:26)
DX: F32.A Depression, unspecified (principal)
CPT/HCPCS: 81025; 90870; 94760

== ENCOUNTER 2024-07-03 06:55 | Day surgery (SDC) | payer OTHER ==
[2024-06-29 10:23] VITALS: BMI 30.7
[2024-07-03] MEDS ORDERED: KETAMINE HCL 100 MG/ML - 5ML VIAL ONE (08:21)
[2024-07-03 09:55] VITALS: RESP 18; TEMP 98
[2024-07-03 10:05] VITALS: BP 141/84; PULSE 94
== END 2024-07-03 10:00 | disposition home or self-care (01) ==
LOC: FECT 06:55
PROVIDERS: ATTEND Student in an Organized Health Care Education/Training Program
PROC: GZB4ZZZ Other Electroconvulsive Therapy (ICD-10-PCS; principal; 2024-07-03 08:37)
DX: F33.2 Major depressive disorder, recurrent severe without psychotic features (principal)
CPT/HCPCS: 81025; 90870; 94760

== ENCOUNTER 2024-07-09 10:03 | Day surgery (SDC) | payer OTHER ==
[2024-07-03 12:59] VITALS: BMI 30.7
[2024-07-09] MEDS ORDERED: KETAMINE HCL 100 MG/ML - 5ML VIAL ONE (10:50)
[2024-07-09 17:27] VITALS: TEMP 97.8
[2024-07-09 17:33] VITALS: BP 120/72; PULSE 102; RESP 17
== END 2024-07-09 13:00 | disposition home or self-care (01) ==
LOC: FECT 10:03
PROVIDERS: ATTEND Student in an Organized Health Care Education/Training Program
PROC: GZB4ZZZ Other Electroconvulsive Therapy (ICD-10-PCS; principal; 2024-07-09 11:05)
DX: F33.2 Major depressive disorder, recurrent severe without psychotic features (principal)
CPT/HCPCS: 81025; 90870; 94760

== ENCOUNTER 2024-07-16 06:40 | Day surgery (SDC) | payer OTHER ==
[2024-07-09 17:11] VITALS: BMI 30.7
[2024-07-16 07:02] VITALS: BP 137/93; PULSE 138; RESP 18; TEMP 97.4
== END 2024-07-16 07:43 | disposition home or self-care (01) ==
LOC: FECT 06:40
PROVIDERS: ATTEND Psychiatry & Neurology Psychiatry
PROC: GZB4ZZZ Other Electroconvulsive Therapy (ICD-10-PCS; principal; 2024-07-16)
DX: F32.A Depression, unspecified (principal); Z53.8 Procedure and treatment not carried out for other reasons
CPT/HCPCS: 81025

== ENCOUNTER 2024-07-21 08:28 | Day surgery (SDC) | payer OTHER ==
[2024-07-21 08:50] VITALS: BMI 30.7
[2024-07-21] MEDS ORDERED: KETAMINE HCL 100 MG/ML - 5ML VIAL ONE (10:40)
[2024-07-21 11:29] VITALS: PULSE 94
[2024-07-21 11:55] VITALS: TEMP 97.2
[2024-07-21 12:12] VITALS: BP 130/70; RESP 18
== END 2024-07-21 12:12 | disposition home or self-care (01) ==
LOC: FECT 08:28
PROVIDERS: ATTEND Psychiatry & Neurology Psychiatry
PROC: GZB4ZZZ Other Electroconvulsive Therapy (ICD-10-PCS; principal; 2024-07-21 10:49)
DX: F32.A Depression, unspecified (principal)
CPT/HCPCS: 81025; 90870; 94760

== ENCOUNTER 2024-08-14 09:10 | Day surgery (SDC) | payer OTHER ==
[2024-07-31 11:26] VITALS: BMI 30.7
[2024-08-14 09:44] VITALS: TEMP 97.3
[2024-08-14] MEDS ORDERED: PROPOFOL 20 ML ONE (11:36)
[2024-08-14] MEDS ORDERED: SUCCINYLCHOLINE CHLORIDE 200 MG/10 ML SYRINGE ONE (11:36)
[2024-08-14 12:56] VITALS: PULSE 93; RESP 20
[2024-08-14 13:04] VITALS: BP 118/70
== END 2024-08-14 12:50 | disposition home or self-care (01) ==
LOC: FECT 09:10
PROVIDERS: ATTEND Psychiatry & Neurology Psychiatry
PROC: GZB4ZZZ Other Electroconvulsive Therapy (ICD-10-PCS; principal; 2024-08-14 11:24)
DX: F32.A Depression, unspecified (principal)
CPT/HCPCS: 81025; 90870; 94760

== ENCOUNTER 2024-09-11 07:08 | Day surgery (SDC) | payer OTHER ==
[2024-09-07 11:01] VITALS: BMI 30.7
[2024-09-11] MEDS ORDERED: KETOROLAC TROMETHAMINE 30 MG/1 ML VIAL ONE (08:00)
[2024-09-11] MEDS ORDERED: KETAMINE HCL 100 MG/ML - 5ML VIAL ONE (08:00)
[2024-09-11] MEDS ORDERED: SUCCINYLCHOLINE CHLORIDE 200 MG/10 ML SYRINGE ONE (08:00)
[2024-09-11] MEDS ORDERED: PROPOFOL 20 ML ONE (08:00)
[2024-09-11] MEDS ORDERED: ONDANSETRON 4 MG/2 ML VIAL ONE (08:17)
[2024-09-11] MEDS ORDERED: LIDOCAINE HCL 2% 100 MG/5 ML DISP.SYRIN ONE (08:17)
[2024-09-11 09:15] VITALS: BP 131/77; PULSE 91; RESP 16; TEMP 97.5
== END 2024-09-11 10:45 | disposition home or self-care (01) ==
LOC: FECT 07:08
PROVIDERS: ATTEND Psychiatry & Neurology Psychiatry
PROC: GZB4ZZZ Other Electroconvulsive Therapy (ICD-10-PCS; principal; 2024-09-11 08:25)
DX: F32.A Depression, unspecified (principal)
CPT/HCPCS: 81025; 90870; 94760

== ENCOUNTER 2024-09-18 08:17 | Day surgery (SDC) | payer OTHER ==
[2024-09-14 17:35] VITALS: BMI 30.7
[2024-09-18] MEDS ORDERED: KETAMINE HCL 100 MG/ML - 5ML VIAL ONE (09:31)
[2024-09-18 10:59] VITALS: BP 127/86; PULSE 88; RESP 18; TEMP 98
== END 2024-09-18 11:10 | disposition home or self-care (01) ==
LOC: FECT 08:17
PROVIDERS: ATTEND Psychiatry & Neurology Psychiatry
PROC: GZB4ZZZ Other Electroconvulsive Therapy (ICD-10-PCS; principal; 2024-09-18 09:44)
DX: F33.2 Major depressive disorder, recurrent severe without psychotic features (principal)
CPT/HCPCS: 81025; 90870; 94760

== ENCOUNTER 2024-10-02 08:47 | Day surgery (SDC) | payer OTHER ==
[2024-10-02 09:17] VITALS: BMI 37.9
[2024-10-02] MEDS ORDERED: KETAMINE HCL 100 MG/ML - 5ML VIAL ONE (10:40)
[2024-10-02 11:15] VITALS: TEMP 98.2
[2024-10-02 11:26] VITALS: RESP 16
[2024-10-02 12:15] VITALS: BP 120/78; PULSE 100
== END 2024-10-02 12:15 | disposition home or self-care (01) ==
LOC: FECT 08:47
PROVIDERS: ATTEND Student in an Organized Health Care Education/Training Program
PROC: GZB4ZZZ Other Electroconvulsive Therapy (ICD-10-PCS; principal; 2024-10-02 10:49)
DX: F32.A Depression, unspecified (principal)
CPT/HCPCS: 81025; 90870; 94760

== ENCOUNTER 2024-10-06 08:58 | Day surgery (SDC) | payer OTHER ==
[2024-10-05 10:40] VITALS: BMI 30.7
[2024-10-06] MEDS ORDERED: KETAMINE HCL 100 MG/ML - 5ML VIAL ONE (10:04)
[2024-10-06 10:41] VITALS: RESP 18
[2024-10-06 11:11] VITALS: TEMP 97
[2024-10-06 11:42] VITALS: BP 112/61; PULSE 71
== END 2024-10-06 11:46 | disposition home or self-care (01) ==
LOC: FECT 08:58
PROVIDERS: ATTEND Student in an Organized Health Care Education/Training Program
PROC: GZB4ZZZ Other Electroconvulsive Therapy (ICD-10-PCS; principal; 2024-10-06 10:19)
DX: F32.A Depression, unspecified (principal)
CPT/HCPCS: 81025; 90870; 94760

== ENCOUNTER 2024-11-06 12:58 | Day surgery (SDC) | payer OTHER ==
[2024-10-19 15:30] VITALS: BMI 37.9
[2024-11-06 16:48] VITALS: RESP 18; TEMP 97.7
[2024-11-06 16:50] VITALS: BP 114/44; PULSE 81
== END 2024-11-06 17:14 | disposition home or self-care (01) ==
LOC: FECT 12:58
PROVIDERS: ATTEND Student in an Organized Health Care Education/Training Program
PROC: GZB4ZZZ Other Electroconvulsive Therapy (ICD-10-PCS; principal; 2024-11-06 15:41)
DX: F32.A Depression, unspecified (principal)
CPT/HCPCS: 81025; 90870; 94760

== ENCOUNTER 2024-11-13 10:31 | Day surgery (SDC) | payer OTHER ==
[2024-11-09 09:17] VITALS: BMI 37.9
[2024-11-13 11:16] LABS: HEMATOCRIT 38.9 % (34.1-44.9); HEMOGLOBIN 12.7 g/dL (11.2-15.7); MCHC 32.6 g/dl (32.2-35.5); MEAN CELL VOLUME 87.6 fl (79.4-94.8); MEAN PLT VOLUME 9.3 fl (9.4-12.3); PLATELET COUNT 437 x10^3/uL (182-369); RDW 12.3 % (12.1-16.5)
[2024-11-13 11:46] LABS: CALCIUM 9.1 mg/dl (8.5-10.1); CREATININE 0.6 mg/dl (0.6-1.3); POTASSIUM 3.6 mmol/L (3.5-5.1)
[2024-11-13 13:14] VITALS: PULSE 79; RESP 20; TEMP 97.7
[2024-11-13 13:52] VITALS: BP 115/64
== END 2024-11-13 13:35 | disposition home or self-care (01) ==
LOC: FECT 10:31
PROVIDERS: ATTEND Student in an Organized Health Care Education/Training Program
PROC: GZB4ZZZ Other Electroconvulsive Therapy (ICD-10-PCS; principal; 2024-11-13 12:04)
DX: F32.A Depression, unspecified (principal)
CPT/HCPCS: 36415; 80048; 81025; 85027; 90870; 93005; 93010; 94760

== ENCOUNTER 2024-11-17 09:12 | Day surgery (SDC) | payer OTHER ==
[2024-11-13 17:15] VITALS: BMI 37.9
[2024-11-17] MEDS ORDERED: KETAMINE HCL 100 MG/ML - 5ML VIAL ONE (10:38)
[2024-11-17] MEDS ORDERED: LACTATED RINGERS SOLUTION 1,000 ML IV SCH (11:30)
[2024-11-17 12:56] VITALS: BP 140/83; PULSE 77; RESP 16; TEMP 97.5
== END 2024-11-17 12:30 | disposition home or self-care (01) ==
LOC: FECT 09:12
PROVIDERS: ATTEND Psychiatry & Neurology Psychiatry
PROC: GZB4ZZZ Other Electroconvulsive Therapy (ICD-10-PCS; principal; 2024-11-17 11:10)
DX: F32.A Depression, unspecified (principal)
CPT/HCPCS: 81025; 90870; 94760

== ENCOUNTER 2024-11-27 08:19 | Day surgery (SDC) | payer OTHER ==
[2024-11-27 08:39] VITALS: BMI 38.5
[2024-11-27] MEDS ORDERED: KETAMINE HCL 100 MG/ML - 5ML VIAL ONE (10:36)
[2024-11-27] MEDS ORDERED: ONDANSETRON 4 MG/2 ML VIAL ONE (10:36)
[2024-11-27] MEDS ORDERED: KETOROLAC TROMETHAMINE 30 MG/1 ML VIAL ONE (10:36)
[2024-11-27] MEDS ORDERED: DEXAMETHASONE SOD PHOSPHATE 4 MG/1 ML VIAL ONE (10:36)
[2024-11-27] MEDS ORDERED: GLYCOPYRROLATE 0.2 MG/1 ML VIAL ONE (10:36)
[2024-11-27 11:30] VITALS: RESP 18; TEMP 97.4
[2024-11-27 11:51] VITALS: BP 112/56; PULSE 88
== END 2024-11-27 11:55 | disposition home or self-care (01) ==
LOC: FECT 08:19
PROVIDERS: ATTEND Student in an Organized Health Care Education/Training Program
PROC: GZB4ZZZ Other Electroconvulsive Therapy (ICD-10-PCS; principal; 2024-11-27 10:44)
DX: F32.A Depression, unspecified (principal)
CPT/HCPCS: 81025; 90870; 94760

== ENCOUNTER 2024-12-25 06:52 | Day surgery (SDC) | payer OTHER ==
[2024-12-22 07:24] VITALS: BMI 36.9
[2024-12-25] MEDS ORDERED: KETAMINE HCL 100 MG/ML - 5ML VIAL ONE (08:33)
[2024-12-25] MEDS ORDERED: DEXAMETHASONE SOD PHOSPHATE 4 MG/1 ML VIAL ONE (08:52)
[2024-12-25] MEDS ORDERED: GLYCOPYRROLATE 0.2 MG/1 ML VIAL ONE (08:52)
[2024-12-25] MEDS ORDERED: ONDANSETRON 4 MG/2 ML VIAL ONE (08:52)
[2024-12-25] MEDS ORDERED: KETOROLAC TROMETHAMINE 30 MG/1 ML VIAL ONE (08:52)
[2024-12-25] MEDS ORDERED: SUCCINYLCHOLINE CHLORIDE 200 MG/10 ML SYRINGE ONE (08:56)
[2024-12-25 10:55] VITALS: RESP 16
[2024-12-25 10:56] VITALS: BP 126/82; PULSE 96
[2024-12-25 11:06] VITALS: TEMP 97.6
== END 2024-12-25 10:45 | disposition home or self-care (01) ==
LOC: FECT 06:52
PROVIDERS: ATTEND Student in an Organized Health Care Education/Training Program
PROC: GZB4ZZZ Other Electroconvulsive Therapy (ICD-10-PCS; principal; 2024-12-25 09:02)
DX: F32.A Depression, unspecified (principal)
CPT/HCPCS: 81025; 90870; 94760

== ENCOUNTER 2025-01-07 08:02 | Day surgery (SDC) | payer OTHER ==
[2025-01-05 12:59] VITALS: BMI 36.9
[2025-01-07] MEDS ORDERED: KETAMINE HCL 100 MG/ML - 5ML VIAL ONE (09:31)
[2025-01-07 10:13] VITALS: PULSE 88
[2025-01-07 11:11] VITALS: BP 131/80; RESP 16; TEMP 97.3
== END 2025-01-07 11:35 | disposition home or self-care (01) ==
LOC: FECT 08:02
PROVIDERS: ATTEND Student in an Organized Health Care Education/Training Program
PROC: GZB4ZZZ Other Electroconvulsive Therapy (ICD-10-PCS; principal; 2025-01-07 09:42)
DX: F32.9 Major depressive disorder, single episode, unspecified (principal)
CPT/HCPCS: 81025; 90870; 94760

== ENCOUNTER 2025-01-15 08:24 | Day surgery (SDC) | payer OTHER ==
[2025-01-08 14:37] VITALS: BMI 36.9
[2025-01-15] MEDS ORDERED: KETAMINE HCL 100 MG/ML - 5ML VIAL ONE (09:37)
[2025-01-15] MEDS ORDERED: ETOMIDATE 20 MG/10 ML VIAL IVPUSH ONE (10:18)
[2025-01-15 10:39] VITALS: RESP 18; TEMP 97.4
[2025-01-15 11:09] VITALS: BP 128/61; PULSE 90
== END 2025-01-15 11:40 | disposition home or self-care (01) ==
LOC: FECT 08:24
PROVIDERS: ATTEND Student in an Organized Health Care Education/Training Program
PROC: GZB4ZZZ Other Electroconvulsive Therapy (ICD-10-PCS; principal; 2025-01-15 09:50)
DX: F33.2 Major depressive disorder, recurrent severe without psychotic features (principal)
CPT/HCPCS: 81025; 90870; 94760

== ENCOUNTER → 2025-02-05 | Day surgery (SDC) | payer OTHER ==
[~2025-02-05] MED LIST changes: -PROPOFOL 20 ML ONE; -SUCCINYLCHOLINE CHLORIDE 200 MG/10 ML SYRINGE ONE
[2025-02-05 11:40] VITALS: BMI 37.3
[2025-02-05 13:39] VITALS: RESP 16; TEMP 98.1
[2025-02-05 13:53] VITALS: BP 111/57; PULSE 78
== END | disposition home or self-care (01) ==
LOC: FECT 11:23
PROVIDERS: ATTEND Student in an Organized Health Care Education/Training Program
PROC: GZB4ZZZ Other Electroconvulsive Therapy (ICD-10-PCS; principal; 2025-02-05 12:30)
DX: F33.2 Major depressive disorder, recurrent severe without psychotic features (principal)
CPT/HCPCS: 81025; 90870; 94760